=== PATIENT | female | born 2000 | race Two or more races ===

== ENCOUNTER 2019-03-22 21:39 | Emergency (ER) | payer OTHER ==
[~2019-03-22] VITALS: Ht 152.4 cm; Wt 56.7 kg
[2019-03-22] MEDS ORDERED: NORTREL 1-35 21 EACH (22:10)
== END 2019-03-23 08:31 | disposition home or self-care (01) ==
LOC: ER 21:39
DX: R10.2 Pelvic and perineal pain (principal)

== ENCOUNTER 2020-08-07 12:18 | Outpatient (CLI) | payer OTHER ==
[~2020-08-07 12:18] MED LIST: NORTREL 1-35 21 EACH
== END 2020-08-07 12:44 | disposition home or self-care (01) ==
LOC: RAD 12:18
DX: Z01.810 Encounter for preprocedural cardiovascular examination (principal)

== ENCOUNTER → 2020-08-07 13:16 | Outpatient (CLI) | payer OTHER | END | disposition home or self-care (01) | LOC: LAB 13:16 | DX: Z01.812 Encounter for preprocedural laboratory examination (principal); D68.8 Other specified coagulation defects ==

== ENCOUNTER → 2020-08-16 | Outpatient (CLI) | payer OTHER | END | disposition home or self-care (01) | LOC: SONOGRAMA 09:34 | PROVIDERS: ATTEND Family Medicine | DX: E04.9 Nontoxic goiter, unspecified (principal) ==